=== PATIENT | female | born 1970 | race Caucasian/White ===

== ENCOUNTER → 2019-07-23 | Outpatient (CLI) | payer OTHER ==
--- NOTE | 2019-07-24 11:30 | PCVCIMAG ---
APPROVED REPORT Study performed: 07/23/2019 15:18:55 Exam: Stress Echocardiogram Indication: Palpitations Patient Location: Echo lab Stress Nurse: Niki Marquez RN Status: routine Ht: 5 ft 5 in HR: 89 bpm BP: 122/76 mmHg Rhythm: NSR Procedure The patient underwent an Exercise Stress Test using the Kenny Protocol. Blood pressure, heart rate, and EKG were monitored. An Echocardiogram was performed by thermoplastic technician in four stages in quad fashion. At peak stress, four selected images were obtained and placed side by side with resting images for comparison. Stress Test Details Stress Test: Exercise stress testing was performed using a Kenny protocol. HR Resting HR: 89 bpmMax Heart Rate (APMHR): 171 bpm Max HR Achieved: 176 bpmTarget HR (85% APMHR): 145 bpm % of APMHR: 102 Recovery HR: 122 bpm HR response to stress: Normal HR response to stress BP Resting BP: 122/76 mmHg Max BP: 144/82 mmHg Recovery BP: 132/76 mmHg BP response to stress: Normal blood pressure response to stress. ECG Resting ECG: Sinus Rhythm Stress ECG: Sinus Rhythm ST Change: Normal Arrhythmia: isolated PVCs Recovery ECG: Sinus Rhythm Recovery ST Change: Normal Recovery Arrhythmia: PVCs Clinical Reason for Termination: Maximal effort Stress Symptoms: Dyspnea, Leg Fatigue Exercise duration: 6 min 30 sec Highest Stage Achieved: Stage 3: 3.4 mph at 14% grade. Exercise capacity: 8.5 METs Overall Exercise Capacity for Age: Average Scale: Active Angina Score: None Stress ECG Conclusion 1. subjectively negative for ischemia 2. electrocardiographically negative for ischemia 3. reduced functional capacity Pre-Stress Echo The resting Echocardiogram showed normal left ventricular contractility with an estimated Ejection Fraction of about >55%. The resting echocardiogram demonstrated normal wall motion in all wall segments. Post-Stress Echo The stress Echocardiogram showed normal left ventricular contractility with an estimated Ejection Fraction of about 65%. Compared to rest, there were no stress-induced wall motion abnormalities. Clinical No clinical or ECG evidence for ischemia. Conclusion Clinical Response: Non-ischemic Exercise Capacity: Average Stress ECG Response: Non-ischemic Stress Echo Images: Non-ischemic The left ventricle is normal in size and wall thickness in both the rest and stress images. Normal color doppler. No regurgitation or stenosis present on pulmonic, tricuspid and aortic valves. Mild mitral regurgitation. Trace tricuspid regurgitation with PAP of 29 mmHg. 1. low ischemix risk study Other Information Study Quality: Adequate <Conclusion> The left ventricle is normal in size and wall thickness in both the rest and stress images. Normal color doppler. No regurgitation or stenosis present on pulmonic, tricuspid and aortic valves. Mild mitral regurgitation. Trace tricuspid regurgitation with PAP of 29 mmHg. 1. low ischemix risk study
== END | disposition home or self-care (01) ==
LOC: PCVCIMAG 16:21
PROVIDERS: ATTEND Internal Medicine
DX: I34.0 Nonrheumatic mitral (valve) insufficiency (principal); R00.2 Palpitations
CPT/HCPCS: 93325; 93351